=== PATIENT | male | born 1990 | race Caucasian/White ===

== ENCOUNTER 2019-02-02 16:11 | Emergency (ER) | payer OTHER, SELFPAY ==
--- NOTE | 2019-02-02 16:33 | DI.RAD.S_ITS ---
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 COMPARISON: None. FINDINGS: Bones: No fractures or dislocations. Carpal bones are normally aligned. No suspicious bony lesions. Soft tissues: Soft tissue gas is seen involving the thenar eminence. No radiopaque foreign bodies are seen. IMPRESSION: Penetrating injury with soft tissue gas, without a radiopaque foreign body. No acute bony injury is seen. If there is strong suspicion for developing osteomyelitis, please consider a dedicated MRI without and with contrast for further evaluation (assuming that there is no contraindication to MRI). Dictated by: Nelson Washington M.D. on 02/02/2019 at 15:56 Approved by: Nelson Washington M.D. on 02/02/2019 at 15:58
[2019-02-02 16:34] VITALS: BP 136/74; PULSE 71; RESP 13; TEMP 37; O2SAT 100
--- NOTE | 2019-02-02 17:40 | PC.NURSE ---
4 x 4 applied, secured with kerlix and tape.
[2019-02-02 17:51] VITALS: BP 108/63; PULSE 65; RESP 16; O2SAT 98
--- NOTE | 2019-02-02 20:41 | ED.WOUNDLAC ---
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 States his tetanus is up-to-date as he is in the . States he has full range of motion of his thumb and left hand. States it happened just prior to arrival. He has not washed it out. Review of Systems <MARGARITA Hua - Last Filed: 02/02/19 20:45> Review of Systems Narrative: GENERAL: Denies chills, fatigue, malaise, fever, sweats. HEENT: Denies sinus pain, ear pain, sore throat, difficulty swallowing, dizziness. RESPIRATORY: Denies dyspnea, cough, wheezing, hemoptysis, sputum. CARDIOVASCULAR: Denies chest pain, palpitations, orthopnea, edema, GASTROINTESTINAL: Denies nausea, vomiting, abdominal pain, diarrhea, constipation, melena. : Denies dysuria, frequency, incontinence, hematuria, urinary retention. MUSCULOSKELETAL: denies weakness, joint pain, or bony pain SKIN: See HPI NEUROLOGIC: Denies weakness, headache, numbness, change in speech, confusion, seizures, incoordination. PSYCHIATRIC: No concerning psychosocial issues. 12 point review of systems is negative except for those stated above Patient History <DOTTIE Hua - Last Filed: 02/02/19 20:45> Social History Smoking Status: Never smoker Substance Use Type: does not use Exam <MARGARITA Hua - Last Filed: 02/02/19 20:45> Narrative Exam Narrative: GENERAL: This is a well-nourished, well-developed patient, in mild distress. HEAD: Atraumatic. Normocephalic. No temporal or scalp tenderness. EYES: Pupils equal round and reactive. Extraocular motions intact. No scleral icterus. No injection or drainage. ENT: Nose without bleeding, purulent drainage or septal hematoma. Throat without erythema, tonsillar hypertrophy or exudate. Uvula midline. Airway patent. NECK: Trachea midline. No JVD or lymphadenopathy. Supple, nontender, no meningeal signs. CARDIOVASCULAR: Regular rate and rhythm RESPIRATORY: No cough. No increased respiratory effort. No accessory muscle use. EXTREMITIES: Skin exam is noted. Able do thumbs up, thumbs down, make fist with right hand. Positive radial pulse right hand. Good strength all fingers. BACK: Nontender without deformity or crepitance. No flank tenderness. NEURO: AOx3. SKIN: 0.5 cm puncture lester noted in webbing between her 1st and 2nd digit of left hand. Slight bleeding. Initial Vital Signs Initial Vital Signs: Vital Signs Temperature 98.6 F 02/02/19 16:34 Pulse Rate 71 02/02/19 16:34 Respiratory Rate 13 02/02/19 16:34 Blood Pressure 136/74 02/02/19 16:34 Pulse Oximetry 100 02/02/19 16:34 <Zara Kaur DO - Last Filed: 02/03/19 07:21> Initial Vital Signs Initial Vital Signs: Vital Signs Temperature 98.6 F 02/02/19 16:34 Pulse Rate 71 02/02/19 16:34 Respiratory Rate 13 02/02/19 16:34 Blood Pressure 136/74 02/02/19 16:34 Pulse Oximetry 100 02/02/19 16:34 Procedures <MARGARITA Hua - Last Filed: 02/02/19 20:45> Laceration Repair Laceration 1: Site: hand Side (If applicable): left Size (cm): 0.5 Description: linear Depth: simple, single layer Local Anesthetic: other anesthetic (The patient elected to not use anesthetic) Pre-repair: wound explored, irrigated extensively (Cleansed with Hibiclens) and deep structures intact Skin layer closed with: nylon Size (cm): 4-0 Number of sutures: 1 Course <MARGARITA Hua - Last Filed: 02/02/19 20:45> Orders Ordered: ED Orders 02/02/19 16:33 XR hand LT min 3V Stat Vital Signs Vital signs: Vital Signs - 8 hr 02/02/19 16:34 02/02/19 17:51 Temperature 98.6 F Pulse Rate 71 65 Respiratory Rate 13 16 Blood Pressure 136/74 Blood Pressure [Right Arm] 108/63 Pulse Oximetry 100 98 <Zara Kaur DO - Last Filed: 02/03/19 07:21> Orders Ordered: ED Orders 02/02/19 16:33 XR hand LT min 3V Stat Vital Signs Vital signs: Vital Signs - 8 hr 02/02/19 16:34 02/02/19 17:51 Temperature 98.6 F Pulse Rate 71 65 Respiratory Rate 13 16 Blood Pressure 136/74 Blood Pressure [Right Arm] 108/63 Pulse Oximetry 100 98 MDM - Wound/Laceration <MARGARITA Hua - Last Filed: 02/02/19 20:45> Imaging Data Hand x-ray: Radiologist's impression: [address] [address] XRay Report Signed Patient: Frederick Mitchell MMR#: [id number] : 1990Acct:[id number] Age/Sex: 28 / MDate of Service: 02/02/19 Loc: ED Accession Number: [id number] Procedure: XR hand LT min 3V Ordering Provider: Faye Kaiser PROCEDURE: XR HAND LT MIN 3V 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 COMPARISON: None. FINDINGS: Bones: No fractures or dislocations. Carpal bones are normally aligned. No suspicious bony lesions. Soft tissues: Soft tissue gas is seen involving the thenar eminence. No radiopaque foreign bodies are seen. IMPRESSION: Penetrating injury with soft tissue gas, without a radiopaque foreign body. No acute bony injury is seen. If there is strong suspicion for developing osteomyelitis, please consider a dedicated MRI without and with contrast for further evaluation (assuming that there is no contraindication to MRI). Dictated by: Nelson Washington M.D. on 02/02/2019 at 15:56 Approved by: Nelson Washington M.D. on 02/02/2019 at 15:58 [facility] Narrative Medical decision making narrative: The patient is a 28-year-old male who presents with a chief complaint of a puncture from a screwdriver in his left hand. His tetanus is up-to-date. X-ray shows no acute abnormalities. Given the nature of his wound in the location come I elected to do single suture. Patient elected to not use anesthetic. Wound was cleansed by nursing and myself. Discussed at length monitoring for signs and symptoms of infection such as redness pus etc discussed at length follow up with primary care provider. Discussed suture removal in 7 days. Patient has no questions or concerns upon discharge and states understanding of return precautions as well as follow-up care. Discharge Plan Departure Patient Disposition: Home Clinical Impression: Laceration Discharge Date/Time: 02/02/19 17:59 Instructions: How to Care for a Laceration After Repair, DI for Laceration Repair, DI for Puncture Wound, DI for Minor Laceration Activity Restrictions/Additional Instructions: Your x-ray shows no signs of foreign body or fracture I have placed 1 suture. Please follow up in 7 days for suture removal. You can see her primary care provider. Please monitor for signs and symptoms of infection such as redness pus etc Please follow up with these occur. Please come back to the emergency department for any acute concerns Referrals: Gilma Rodney ARNP [Primary Care Provider] -
== END 2019-02-02 17:59 | disposition home or self-care (01) ==
PROVIDERS: Emergency Provider Nurse Practitioner Family; PCP Nurse Practitioner Family
DX: S61.412A Laceration without foreign body of left hand, initial encounter (principal); W27.0XXA Contact with workbench tool, initial encounter
CPT/HCPCS: 12001; 73130; 99283; 99284